=== PATIENT | male | born 1980 | race Caucasian/White ===

== ENCOUNTER 2018-01-30 23:03 | Observation (INO) | payer SELFPAY ==
[~2018-01-30] VITALS: Ht 175.3 cm; Wt 69.6 kg
--- OUTSIDE RECORDS SUMMARY | 2018-01-30 23:10 | XMS REPORT ---
Author Author Alayna Roberts Organization [facility] Address [address] [place], [place] [id number] Care Team Providers Care Epic Beacon Analyst Name Role Phone Alayna Roberts PCP Allergies and Adverse Reactions Name Reaction Notes No known drug allergy Plan of Treatment Planned Activity Comments Planned Date Planned Time Plan/Goal Culture aerobic + anaerobic 01/30/2018 12:00 AM Medications Active Name Start Date Estimated Completion Date SIG Comments Bactrim DS 800-160 mg oral tablet 01/30/2018 02/09/2018 take 1 tablet by oral route every 12 hours for 10 days Problem List Not available. Vital Signs Date Time BP-Sys(mm[Hg] BP-Jamilah(mm[Hg]) HR(bpm) RR(rpm) Temp WT HT HC BMI BSA BMI Percentile O2 Sat(%) 01/30/2018 3:13:00 PM 108 mmHg 80 mmHg 104 bpm 18 rpm 97.9 F 150 lbs 69 in 22.1509 kg/m 1.82 m 97 % Social History Name Description Comments Tobacco Current every day smoker History of Procedures Date Ordered Description Order Status 01/30/2018 12:00 AM THER/PROPH/DIAG INJ SC/IM Reviewed 01/30/2018 12:00 AM DRAINAGE OF SKIN ABSCESS Reviewed 01/30/2018 12:00 AM Rocephin 1 gram Injection Reviewed 01/30/2018 12:00 AM DRAINAGE OF SKIN ABSCESS Reviewed 01/30/2018 12:00 AM DRAINAGE OF SKIN ABSCESS Reviewed Results Summary Not available. History Of Immunizations Not available. History of Past Illness Name Date of Onset Comments Abscess Jan 30 2018 3:18PM Cellulitis of right forearm Jan 30 2018 3:18PM Abscess / Cellulitis Jan 30 2018 5:01PM Payers Not available. 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
--- OUTSIDE RECORDS SUMMARY | 2018-01-30 23:10 | XMS REPORT ---
Author Author Alayna Roberts [facility] Address [address] [place], [place] [id number] Care Team Providers Care Marketing Assistant Manager Name Role Phone Alayna Roberts PCP Allergies [...] 12:00 AM Rocephin 1 gram Injection Reviewed Results Summary Not available. History Of Immunizations Not available. History of Past Illness Name Date of Onset Comments Abscess Jan 30 2018 3:18PM Cellulitis of right forearm Jan 30 2018 3:18PM Payers Not available. History of Encounters Visit Date Visit Type Provider 01/30/2018 Office visit Alayna Roberts APRN
--- OUTSIDE RECORDS SUMMARY | 2018-01-30 23:10 | XMS REPORT ---
Author Author NICCI OLSEN [facility] Address [address] [place] [address] Care Team Providers Care Critical Care Physician Assistant Name Role Phone NICCI OLSEN Unavailable PROBLEMS Type Condition ICD9-CM Code [id number] Code Onset Dates Condition Status SNOMED Code Problem Seizure disorder G40.909 Active [id number] ALLERGIES Substance Reaction Event Type Date Status Penicillin V Potassium nausea Drug Allergy Jan, Active SOCIAL HISTORY No smoking Hx information available PLAN OF CARE Activity Details Follow Up 6 Months Reason: VITAL SIGNS Height 69 in 2016-02-08 Weight 167 lbs 2016-02-08 Temperature 97.3 degrees Fahrenheit 2016-02-08 Heart Rate 62 bpm 2016-02-08 Respiratory Rate 18 2016-02-08 BMI 24.66 kg/m2 2016-02-08 Blood pressure systolic 122 mmHg 2016-02-08 Blood pressure diastolic 64 mmHg 2016-02-08 MEDICATIONS No Known Medications RESULTS Name Result Date Reference Range TSH 2016-02-08 TSH 1.760 0.450-4.500 CBC 2016-02-08 WBC 9.4 3.4-10.8 RBC 4.44 4.14-5.80 Hemoglobin 14.0 12.6-17.7 Hematocrit 40.8 37.5-51.0 MCV 92 79-97 MCH 31.5 26.6-33.0 MCHC 34.3 31.5-35.7 RDW 13.5 12.3-15.4 Platelets 294 150-379 Neutrophils 48 Lymphs 39 Monocytes 10 Eos 2 Basos 1 Immature Cells Neutrophils (Absolute) 4.5 1.4-7.0 Lymphs (Absolute) 3.7 0.7-3.1 Monocytes(Absolute) 1.0 0.1-0.9 Eos (Absolute) 0.1 0.0-0.4 Baso (Absolute) 0.1 0.0-0.2 Immature Granulocytes 0 Immature Grans (Abs) 0.0 0.0-0.1 [facility] Hematology Comments: LIPID PANEL 2016-02-08 Cholesterol, Total 190 100-199 Triglycerides 54 0-149 HDL Cholesterol 61 >39 VLDL Cholesterol Guzman 11 5-40 LDL Cholesterol Calc 118 0-99 Comment: CMP 2016-02-08 Glucose, Serum 80 65-99 BUN 12 6-20 Creatinine, Serum 0.89 0.76-1.27 eGFR If NonAfricn Am 111 >59 eGFR If Africn Am 128 >59 BUN/Creatinine Ratio 13 8-19 Sodium, Serum 142 134-144 Potassium, Serum 4.5 3.5-5.2 Chloride, Serum 101 96-106 Carbon Dioxide, Total 23 18-29 Calcium, Serum 9.4 8.7-10.2 Protein, Total, Serum 6.9 6.0-8.5 Albumin, Serum 4.7 3.5-5.5 Globulin, Total 2.2 1.5-4.5 A/G Ratio 2.1 1.1-2.5 Bilirubin, Total 0.3 0.0-1.2 Alkaline Phosphatase, S 61 39-117 AST (SGOT) 24 0-40 ALT (SGPT) 25 0-44 PROCEDURES Procedure Date Ordered Related Diagnosis Body Site ASSAY THYROID STIM HORMONE Feb 08, 2016 COMPLETE CBC W/AUTO DIFF WBC Feb 08, 2016 COMPREHEN METABOLIC PANEL Feb 08, 2016 LIPID PANEL Feb 08, 2016 Office Visit, Est Pt., Level 3 Feb 08, 2016 VENIPUNCT, ROUTINE* Feb 08, 2016 IMMUNIZATIONS No Known Immunizations
--- OUTSIDE RECORDS SUMMARY | 2018-01-30 23:11 | XMS REPORT | Continuity of Care Document ---
Author Author [facility] Organization [facility] Address [facility] [address] [place] [address] Phone Unavailable Support Name Relationship Address Phone ROSMERY GUZMAN DO Caregiver [address] [place], [place] [phone] MAE MERA Next Of Kin [address] [place], [place] [id number] Insurance Providers Payer Name Policy Number Subscriber Name Relationship Blue Cross/Blue Shield [id number] Coco Paredes 18 Self / Same As Patient Advance Directives Directive Response Recorded Date/Time Advance Directives No 03/17/15 1:39pm Living Will No 03/17/15 1:39pm Health Care Proxy No 08/29/15 12:09pm Power of [employer] for Health Care No 03/17/15 1:39pm Organ, Tissue, or Eye Donor No 03/17/15 1:38pm Do you have a signed organ donor card? No 03/17/15 1:38pm Chief Complaint and Reason for Visit Chief Complaint HAND/FINGER PROBLEM Reason for Visit [id number] Problems Active Problems Medical Problem Onset Date Status Back pain Unknown Acute Crush injury arm Unknown Acute Nausea Unknown Acute Paresthesias Unknown Acute Medications Current Home Medications Medication Dose Units Route Directions Days/Qty Instructions Start Date Ondansetron* 4 Mg/Tab 4 Mg Oral Every 6 Hours As Needed as needed for Nausea 10 03/17/15 Acetaminophen/Hydrocodone Bitart (Lortab 7.5-325 Tab*) 1 Tab 1 Each Oral Every 6 Hrs As Needed For Pain 15 03/17/15 Social History Social History Problem Response Recorded Date/Time Smoking Status Current every day smoker 05/06/2015 7:40pm Alcohol Use none 08/29/2015 1:28pm Drug Use none 08/29/2015 1:28pm Employment Employed 08/29/2015 1:28pm Query Response Start Date Stop Date Smoking Status Current every day smoker Hospital Discharge Instructions No hospital discharge instructions. Plan of Care Discharge Date 08/29/15 1:42pm Disposition 01 HOME, NURSING HOME,ASSISTED LIVING Condition at Discharge Stable Instructions/Education Provided Crush Injury (ED) Prescriptions See Medication Section Functional Status Query Response Date Recorded Patient Behavior Cooperative August 29, 2015 12:20pm Allergies, Adverse Reactions, Alerts No allergy information available. Immunizations Name Given Type Hx Diphtheria, Pertussis, Tetanus Vaccination Unknown Historical Hx Influenza Vaccination No Historical Hx Pneumococcal Vaccination No Historical Vital Signs Acute Vital Signs Vital Response Date/Time Blood Pressure 135/68 mm Hg 08/29/2015 3:01pm O2 Sat by Pulse Oximetry 97 % (90 - 100) 08/29/2015 12:44pm Oxygen Delivery Method 08/29/2015 12:44pm Height 5 ft 10 in Weight 170 lb Body Mass Index 24.0 kg/m^2 Results No known relevant diagnostic tests, laboratory data and/or discharge summary. Procedures Procedure Status Date Provider(s) Wrist Lt. 4 Views(3OR More) Active 08/29/15 ROSMERY GUZMAN DO Hand Lt.4 Views(3OR More) Active 08/29/15 ROSMERY GUZMAN DO X-ray of left forearm Active 08/29/15 ROSMERY GUZMAN DO Encounters Encounter Location Arrival/Admit Date Discharge/Depart Date Attending Provider Departed Emergency Room [facility] 08/29/15 12:10pm 08/29/15 1:42pm ROSMERY GUZMAN DO Recent Diagnosis
[2018-01-31] MEDS ORDERED: fentaNYL INJECTION 100 MCG/2 ML AMP ONE (00:07)
[2018-01-31] MEDS ORDERED: VANCOMYCIN INJECTION 1,000 MG in NS (IVPB) 250 ML IV ONE (00:15)
[2018-01-31] MEDS ORDERED: PIPERACILLIN SODIUM/TAZOBACTAM 4.5 GM in NS (IVPB) 100 ML IV ONE (00:15)
[2018-01-31] MEDS ORDERED: NS IV 1000 ML 1,500 ML IV ONE (00:15)
--- NOTE | 2018-01-31 00:15 | ED Integumentary General ---
General Stated Complaint: MRSA RT ARM,LEFT ARM PIT & CHIN Source: patient, other Exam Limitations: no limitations History of Present Illness Date Seen by Provider: Jan 31, 2018 Time Seen by Provider: 00:08 Initial Comments Patient presents to ER by private conveyance with significant other chief complaint of pain in his left armpit from a nodule. He went to another ER earlier today and they lanced it did not get any purulence out of it said that was on and put him on Bactrim. He's taken one dose. He says he also has a wound on his right forearm. These started out after they bought a house at [facility] from a gentleman who apparently got very sick and apparently contracted gangrene before losing his foot and then put the house up for auction. Patient states he does not abuse any fevers but he's had some chills no nausea vomiting. No history of medical problems. Doesn't take any medicines. His girlfriend also had a hangnail that ended up getting very infected and she went to her doctor's office and was treated for and then a culture grew out MRSA. Patient states he smokes about half a pack to one pack per day. 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 Does not drink alcohol. Allergies and Home Medications Allergies Coded Allergies: Penicillins (Verified Adverse Reaction, Unknown, N/V, 01/31/18) Patient Home Medication List Home Medication List Reviewed: Yes Review of Systems Review of Systems Constitutional: chills; No fever; malaise; No weakness EENTM: other (he thinks he is a new infection starting up on his chin); No ear discharge, No ear pain Respiratory: No cough, No short of breath Cardiovascular: No chest pain, No palpitations Gastrointestinal: No abdominal pain, No constipation, No diarrhea, No nausea Genitourinary: No discharge, No dysuria Musculoskeletal: No back pain, No joint pain Skin: see HPI Past Yzpxpjn-Zgqksh-Khxfox Hx Patient Social History Alcohol Use: Denies Use Recreational Drug Use: No Drug of Choice: 10 years ago last IV meth use Smoking Status: Current Everyday Smoker Type Used: Cigarettes Recent Foreign Travel: No Contact w/Someone Who Travel: No Physical Exam Vital Signs Capillary Refill : General Appearance: moderate distress (tearful), other (disheveled) HEENT: PERRL/EOMI, normal ENT inspection, TMs normal, pharynx normal, other ( chin has a small red 1 mm papule that is nonindurated or tender to palpation.) Neck: non-tender, full range of motion, supple, normal inspection Cardiovascular: normal peripheral pulses, regular rate, rhythm, tachycardia Respiratory: lungs clear, normal breath sounds, no respiratory distress, no accessory muscle use Gastrointestinal: normal bowel sounds, non tender, soft Extremities: other (left axilla has a 4 cm mass consistent with possible abscess versus enlarged lymph node with a crosshatch incision and some thick yellow white purulence less than 1 cc at the opening. Nothing expressed) Neurologic/Psychiatric: alert, oriented x 3, other (anxious and tearful) Skin: other (right forearm has a 1-1/2 cm round eschar with no erythema, induration or area of fluctuance under it.) Procedures/Interventions Progress Clean the left axilla injection site with alcohol thoroughly then Betadine. Allowed it to sit for 2 minutes and then using a 25-gauge 1-1/2 inch needle we used 1% lidocaine without epinephrine and put a total of 3 cc around the abscess to give him some pain relief. Withdrew and got no blood returned before injecting. Progress/Results/Core Measures Results/Orders Lab Results Laboratory Tests Test 01/31/18 00:00 Range/Units White Blood Count 11.9 H 4.3-11.0 10^3/uL Red Blood Count 4.19 L 4.35-5.85 10^6/uL Hemoglobin 13.4 13.3-17.7 G/DL Hematocrit 39 L 40-54 % Mean Corpuscular Volume 94 80-99 FL Mean Corpuscular Hemoglobin 32 25-34 PG Mean Corpuscular Hemoglobin Concent 34 32-36 G/DL Red Cell Distribution Width 12.9 10.0-14.5 % Platelet Count 336 130-400 10^3/uL Mean Platelet Volume 9.8 7.4-10.4 FL Neutrophils (%) (Auto) 63 42-75 % Lymphocytes (%) (Auto) 22 12-44 % Monocytes (%) (Auto) 12 0-12 % Eosinophils (%) (Auto) 2 0-10 % Basophils (%) (Auto) 0 0-10 % Neutrophils # (Auto) 7.5 1.8-7.8 X 10^3 Lymphocytes # (Auto) 2.7 1.0-4.0 X 10^3 Monocytes # (Auto) 1.5 H 0.0-1.0 X 10^3 Eosinophils # (Auto) 0.2 0.0-0.3 10^3/uL Basophils # (Auto) 0.1 0.0-0.1 10^3/uL Prothrombin Time 12.6 12.2-14.7 SEC INR Comment 0.9 0.8-1.4 Activated Partial Thromboplast Time 32 24-35 SEC Sodium Level 141 135-145 MMOL/L Potassium Level 3.8 3.6-5.0 MMOL/L Chloride Level 105 98-107 MMOL/L Carbon Dioxide Level 24 21-32 MMOL/L Anion Gap 12 5-14 MMOL/L Blood Urea Nitrogen 18 7-18 MG/DL Creatinine 0.83 0.60-1.30 MG/DL Estimat Glomerular Filtration Rate > 60 BUN/Creatinine Ratio 22 Glucose Level 119 H 70-105 MG/DL Lactic Acid Level 1.51 0.50-2.00 MMOL/L Calcium Level 9.4 8.5-10.1 MG/DL Corrected Calcium 9.5 8.5-10.1 MG/DL Total Bilirubin 0.2 0.1-1.0 MG/DL Aspartate Amino Transf (AST/SGOT) 36 H 5-34 U/L Alanine Aminotransferase (ALT/SGPT) 21 0-55 U/L Alkaline Phosphatase 107 40-136 U/L Total Protein 6.5 6.4-8.2 GM/DL Albumin 3.9 3.2-4.5 GM/DL My Orders Orders - XOCHITL,TRIXIE J Fentanyl Injection (Sublimaze Injection (01/31/18 00:07) Cbc With Automated Diff (01/31/18 00:15) Comprehensive Metabolic Panel (01/31/18 00:15) Blood Culture (01/31/18 00:15) Sputum Culture (01/31/18 00:15) Urinalysis (01/31/18 00:15) Urine Culture (01/31/18 00:15) Protime With Inr (01/31/18 00:15) Partial Thromboplastin Time (01/31/18 00:15) Chest 1 View, Ap/Pa Only (01/31/18 00:15) Saline Lock/Iv-Start (01/31/18 00:15) Saline Lock/Iv-Start (01/31/18 00:15) Vital Signs Adult Sepsis Patie Q15M (01/31/18 00:15) O2 (01/31/18 00:15) Remove Rings In Anticipation O (01/31/18 00:15) Lactic Acid Analyzer (01/31/18 00:15) Ns Iv 1000 Ml (Sodium Chloride 0.9%) (01/31/18 00:15) Piperacillin Sodium/Tazobactam (Zosyn Vi (01/31/18 00:15) Vancomycin Injection (Vancomycin Injecti (01/31/18 00:15) Fentanyl Injection (Sublimaze Injection (01/31/18 00:30) Isolation Central Supply Req (01/31/18 00:34) Cefepime Injection (Maxipime Injection) (01/31/18 00:45) Lorazepam Injection (Ativan Injection) (01/31/18 01:30) Medications Given in ED Current Medications Medications Dose Ordered Sig/Medhat Route Start Time Stop Time Status Last Admin Dose Admin Cefepime HCl 2000 mg/Sodium Chloride 50 ml @ 100 mls/hr ONCE ONCE IV 01/31/18 00:45 01/31/18 01:14 DC 01/31/18 00:54 100 MLS/HR Lorazepam 1 mg ONCE ONCE IVP 01/31/18 01:30 01/31/18 01:31 DC 01/31/18 02:00 1 MG Sodium Chloride 1,500 ml @ 1,500 mls/hr ONCE ONCE IV 01/31/18 00:15 01/31/18 01:14 DC 01/31/18 00:54 1,500 MLS/HR Vancomycin HCl 1000 mg/Sodium Chloride 250 ml @ 250 mls/hr ONCE ONCE IV 01/31/18 00:15 01/31/18 01:14 DC 01/31/18 02:00 250 MLS/HR Progress Progress Note : Time: 02:19 Progress Note Septic workup for tachycardia. Diagnostic Imaging Diagonstic Imaging: Xray Plain Films/CT/US/NM/MRI: chest Comments No acute cardiopulmonary process noted. Reviewed: Reviewed by Me Departure Communication (Admissions) Time/Spoke to Admitting Phy: 02:00 Discussed case lab imaging with Dr. Jiang and she agrees to observe the patient overnight, continue antibiotics and consult surgery. Time/Spoke to Consulting Phy: 02:00 Discussed case lab imaging with Dr. Rios and he agrees see the patient in the morning. Impression Primary Impression: Abscess Additional Impression: Cellulitis Qualified Codes: L03.114 - Cellulitis of left upper limb Disposition: ADMITTED INPATIENT Condition: Stable Admissions Decision to Admit Reason: Admit from ER (General) Decision to Admit/Date: Jan 31, 2018 Time/Decision to Admit Time: 02:15 Departure-Patient Inst. Referrals: NO,LOCAL PHYSICIAN (PCP/Family) Primary Care Physician TRIXIE LEUNG Jan 31, 2018 00:15
[2018-01-31] MEDS ORDERED: fentaNYL INJECTION 100 MCG/2 ML AMP IVP ONE (00:30)
[2018-01-31 00:32] LABS: BASOPHILS # (AUTO) 0.1 10^3/uL (0.0-0.1); BASOPHILS % (AUTO) 0 % (0-10); EOSINOPHILS # (AUTO) 0.2 10^3/uL (0.0-0.3); EOSINOPHILS % (AUTO) 2 % (0-10); HEMATOCRIT 39 % (40-54); HEMOGLOBIN 13.4 G/DL (13.3-17.7); LYMPHOCYTES # (AUTO) 2.7 X 10^3 (1.0-4.0); LYMPHOCYTES % (AUTO) 22 % (12-44); MEAN CORPUSCULAR HEMOGLOBIN 32 PG (25-34); MEAN CORPUSCULAR HGB CONC 34 G/DL (32-36); MEAN CORPUSCULAR VOLUME 94 FL (80-99); MEAN PLATELET VOLUME 9.8 FL (7.4-10.4); MONOCYTES # (AUTO) 1.5 X 10^3 (0.0-1.0); MONOCYTES % (AUTO) 12 % (0-12); NEUTROPHILS # (AUTO) 7.5 X 10^3 (1.8-7.8); NEUTROPHILS % (AUTO) 63 % (42-75); PLATELET COUNT 336 10^3/uL (130-400); RED BLOOD COUNT 4.19 10^6/uL (4.35-5.85); RED CELL DISTRIBUTION WIDTH 12.9 % (10.0-14.5); WHITE BLOOD COUNT 11.9 10^3/uL (4.3-11.0)
[2018-01-31 00:37] LABS: INR 0.9 (0.8-1.4); PROTHROMBIN TIME PATIENT 12.6 SEC (12.2-14.7)
[2018-01-31 00:40] LABS: ALANINE AMINOTRANSFERASE 21 U/L (0-55); ALBUMIN 3.9 GM/DL (3.2-4.5); ALKALINE PHOSPHATASE 107 U/L (40-136); BILIRUBIN,TOTAL 0.2 MG/DL (0.1-1.0); BUN/CREATININE RATIO 22; CALCIUM 9.4 MG/DL (8.5-10.1); CARBON DIOXIDE 24 MMOL/L (21-32); CHLORIDE 105 MMOL/L (98-107); CREATININE SERUM 0.83 MG/DL (0.60-1.30); GFR ESTIMATED > 60; GLUCOSE 119 MG/DL (70-105); POTASSIUM 3.8 MMOL/L (3.6-5.0); SODIUM 141 MMOL/L (135-145); TOTAL PROTEIN 6.5 GM/DL (6.4-8.2)
[2018-01-31] MEDS ORDERED: CEFEPIME INJECTION 2,000 MG in NS (IVPB) 50 ML IV ONE (00:45)
[2018-01-31] MEDS ORDERED: LORazepam INJ 2 MG/ML (ATIVAN) VIAL IVP ONE (01:30)
[2018-01-31 04:00] VITALS: BP 125/75
[2018-01-31] MEDS ORDERED: NS IV 1000 ML 1,000 ML ONE (04:05)
[2018-01-31] MEDS: NS IV 1000 ML 1,000 ML IV SCH ×2 (04:15→09:50)
[2018-01-31] MEDS ORDERED: ONDANSETRON 4 MG/2 ML (SDV) Z0FRAN IV PRN (05:15)
[2018-01-31] MEDS ORDERED: KETOROLAC 15 MG/ML VIAL IVP PRN (05:15)
[2018-01-31] MEDS ORDERED: PROMETHAZINE INJ 25 MG/ML (PHENERGAN) AMP IV PRN (05:15)
[2018-01-31] MEDS ORDERED: HYDROcodone/APAP 5 MG/325 MG (LORTAB) TAB PO PRN (05:15)
[2018-01-31] MEDS ORDERED: fentaNYL INJECTION 100 MCG/2 ML AMP IV PRN ×2 (05:15)
[2018-01-31 05:45] LABS: BASOPHILS % (AUTO) 0 % (0-10); EOSINOPHILS # (AUTO) 0.2 10^3/uL (0.0-0.3); EOSINOPHILS % (AUTO) 3 % (0-10); HEMATOCRIT 39 % (40-54); LYMPHOCYTES # (AUTO) 2.4 X 10^3 (1.0-4.0); LYMPHOCYTES % (AUTO) 25 % (12-44); MEAN CORPUSCULAR HEMOGLOBIN 32 PG (25-34); MEAN CORPUSCULAR HGB CONC 34 G/DL (32-36); MEAN CORPUSCULAR VOLUME 95 FL (80-99); MEAN PLATELET VOLUME 9.6 FL (7.4-10.4); MONOCYTES # (AUTO) 1.3 X 10^3 (0.0-1.0); MONOCYTES % (AUTO) 13 % (0-12); NEUTROPHILS # (AUTO) 5.6 X 10^3 (1.8-7.8); NEUTROPHILS % (AUTO) 59 % (42-75); PLATELET COUNT 311 10^3/uL (130-400); RED BLOOD COUNT 4.08 10^6/uL (4.35-5.85); RED CELL DISTRIBUTION WIDTH 12.9 % (10.0-14.5); WHITE BLOOD COUNT 9.5 10^3/uL (4.3-11.0)
[2018-01-31 06:00] LABS: BUN/CREATININE RATIO 18; CALCIUM 8.4 MG/DL (8.5-10.1); CARBON DIOXIDE 22 MMOL/L (21-32); CHLORIDE 109 MMOL/L (98-107); CREATININE SERUM 0.71 MG/DL (0.60-1.30); GFR ESTIMATED > 60; GLUCOSE 94 MG/DL (70-105); SODIUM 139 MMOL/L (135-145)
--- NOTE | 2018-01-31 07:13 | Diagnostic Imaging Report ---
Portable erect AP chest at 115 hours. INDICATION: Sepsis. There are no prior studies available for comparison. FINDINGS: The heart size is within normal limits. The lungs are clear. There is no evidence for failure, pneumonia or for pleural effusion. There do appear to be a few small granulomas in both lungs. The mediastinum is not widened. The osseous structures are intact. IMPRESSION: There is no evidence for an acute cardiopulmonary abnormality. Dictated by: Dictated on workstation # [id number]
[2018-01-31 08:00] VITALS: BP 131/77
--- NOTE | 2018-01-31 08:29 | History & Physical-Hospitalist ---
History of Present Illness HPI/Chief Complaint CC: Cellulitis with left axilla swelling and pain HPI: This is a 37-year-old white male but previously had seen in ER physician at outside hospital diagnosis cellulitis of the right hand and left axilla was placed on Bactrim but he felt like he needed a second opinion after taking one pill and the issue not resolving so he is placed on IV fluids IV antibiotics and general surgery consultation ensued. At this current time patient denies any severe change in his status and it is recommended that he is discharged on Bactrim with establishment of medical care near his hometown of [place]. Source: patient Exam Limitations: no limitations Date Seen 01/31/18 Time Seen by a Provider: 10:30 Attending Physician Patricia Jiang DO PCP No,Local Physician Referring Physician Date of Admission Jan 31, 2018 at 02:15 Home Medications & Allergies Home Medications Reviewed patient Home Medication Reconciliation performed by pharmacy medication reconciliations patient care technician and/or nursing. Patients Allergies have been reviewed. Allergies Allergies Coded Allergies Penicillins (Verified Adverse Reaction, Unknown, N/V, 01/31/18) Past Veblcgd-Obwvqs-Viveyb Hx Past Med/Social Hx: Reviewed Nursing Past Med/Soc Hx, Reviewed and Corrections made Patient Social History Marrital Status: Employed/Student: retired Alcohol Use: Denies Use Recreational Drug Use: No Drug of Choice: 10 years ago last IV meth use Smoking Status: Current Everyday Smoker Type Used: Cigarettes 2nd Hand Smoke Exposure: Yes Physical Abuse Screen: No Sexual Abuse: No Recent Foreign Travel: No Contact w/other who traveled: No Recent Hopitalizations: No Recent Infectious Disease Expo: No Immunizations Up To Date Date of Influenza Vaccine: Jan 24, 2018 Seasonal Allergies Seasonal Allergies: No Past Medical History Surgeries: Tonsillectomy Skin/Integumentary: Recent Skin Changes History of Blood Disorders: No Review of Systems Constitutional: see HPI, fever EENTM: no symptoms reported Respiratory: no symptoms reported Cardiovascular: no symptoms reported Gastrointestinal: no symptoms reported Genitourinary: no symptoms reported Musculoskeletal: no symptoms reported Skin: see HPI Psychiatric/Neurological: No Symptoms Reported All Other Systems Reviewed Negative Unless Noted: Yes Physical Exam Physical Exam Vital Signs Vital Signs - First Documented 01/30/18 23:40 Temp 96.5 Pulse 111 Resp 22 B/P (MAP) 140/86 (104) Pulse Ox 97 O2 Delivery Room Air Capillary Refill : Less Than 3 Seconds Height, Weight, BMI Height: 5'9.00" Weight: 153lbs. 7.0oz. 69.677261mk; 22.7 BMI Method:Stated General Appearance: No Apparent Distress, WD/WN, Chronically ill Eyes: Bilateral Eye Normal Inspection, Bilateral Eye PERRL HEENT: PERRL/EOMI, Normal ENT Inspection, Pharynx Normal Neck: Full Range of Motion, Normal Inspection, Non Tender, Supple, Carotid Bruit Respiratory: Chest Non Tender, Lungs Clear, Normal Breath Sounds, No Accessory Muscle Use, No Respiratory Distress Cardiovascular: Regular Rate, Rhythm, No Edema, No Gallop, No JVD, No Murmur, Normal Peripheral Pulses Gastrointestinal: Normal Bowel Sounds, No Organomegaly, No Pulsatile Mass, Non Tender, Soft Back: Normal Inspection, No CVA Tenderness, No Vertebral Tenderness Extremity: Normal Capillary Refill, Normal Inspection, Normal Range of Motion, Non Tender, No Calf Tenderness, No Pedal Edema Neurologic/Psychiatric: Alert, Oriented x3, No Motor/Sensory Deficits, Normal Mood/Affect Skin: Normal Color, Warm/Dry, Rash (resolving cellulitis left axilla and right hand) Lymphatic: No Adenopathy Results Results/Procedures Labs Laboratory Tests 01/31/18 00:00 01/31/18 05:20 Patient resulted labs reviewed. Assessment/Plan Admission Diagnosis Cellulitis Plan is to discharge home Admission Status: Observation Clinical Quality Measures DVT/VTE Risk/Contraindication: Risk Factor Score Per Nursin RFS Level Per Nursing on Admit: 1=Low/No VTE PPX PATRICIA JIANG DO Jan 31, 2018 08:29
--- NOTE | 2018-01-31 09:22 | Consultation ---
History of Present Illness History of Present Illness Patient Consulted On(carol/time) 01/31/18 08:58 Time Seen by Provider: 08:46 History of Present Illness Surgery is asked to consult regarding abscesses. HPI per ED: Patient presents to ER by private conveyance with significant other chief complaint of pain in his left armpit from a nodule. He went to another ER earlier today and they lanced it did not get any purulence out of it said that was on and put him on Bactrim. He's taken one dose. He says he also has a wound on his right forearm. These started out after they bought a house [place] [employer] from a gentleman who apparently got very sick and apparently contracted gangrene before losing his foot and then put the house up for auction. Patient states he does not abuse any fevers but he's had some chills no nausea vomiting. No history of medical problems. Doesn't take any medicines. His girlfriend also had a hangnail that ended up getting very infected and she went to her doctor's office and was treated for and then a culture grew out MRSA. Patient states he smokes about half a pack to one pack per day. 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 Does not drink alcohol. When I spoke to pt he stated pain was severe and cried when I took tape down to look in left axilla. He does not know if he had fevers at home, but does state that he has had decreased appetite. He has the spot in left axilla and on right forearm, denies any other spots. He states he did not have any trauma to the area, doesn't remember getting bit by insect. Allergies and Home Medications Allergies Coded Allergies: Penicillins (Verified Adverse Reaction, Unknown, N/V, 01/31/18) Patient Home Medication List Home Medication List Reviewed: Yes Past Pgnuthc-[id number]-Dfzbvn Hx Patient Social History Alcohol Use: Denies Use Recreational Drug Use: No Drug of Choice: 10 years ago last IV meth use Smoking Status: Current Everyday Smoker Type Used: Cigarettes 2nd Hand Smoke Exposure: Yes Recent Foreign Travel: No Contact w/Someone Who Travel: No Recent Infectious Disease Expo: No Recent Hopitalizations: No Physical Abuse Screen: No Sexual Abuse: No Immunizations Up To Date Date of Influenza Vaccine: Jan 24, 2018 Seasonal Allergies Seasonal Allergies: No Surgeries History of Surgeries: Yes Surgeries: Tonsillectomy Respiratory History of Respiratory Disorde: No Cardiovascular History of Cardiac Disorders: No Neurological History of Neurological Disord: No Genitourinary History of Genitourinary Disor: No Gastrointestinal History of Gastrointestinal Di: No Musculoskeletal History of Musculoskeletal Dis: No Endocrine History of Endocrine Disorders: No HEENT History of HEENT Disorders: No Cancer History of Cancer: No Psychosocial History of Psychiatric Problem: No Integumentary History of Skin or Integumenta: Yes Skin/Integumentary Disorders: Recent Skin Changes Blood Transfusions History of Blood Disorders: No Family Medical History Significant Family History: Cancer (sister has leukemia) Review of Systems-General Constitutional: chills, malaise, weakness EENTM: No blurred vision, No double vision, No eye pain, No throat swelling Respiratory: No cough, No dyspnea on exertion, No hemoptysis Cardiovascular: No chest pain, No edema, No palpitations Gastrointestinal: No abdominal pain, No constipation, No diarrhea, No hematemesis Genitourinary: No dysuria, No frequency, No hematuria Musculoskeletal: muscle pain, muscle stiffness, muscle cramps Skin: see HPI Psychiatric/Neurological: Denies Anxiety, Denies Depressed, Denies Seizure, Denies Weakness Other pt denies any abnormal bruising or bleeding Physical Exam-General Problems Physical Exam Vital Signs Vital Signs - First Documented 01/30/18 23:40 Temp 96.5 Pulse 111 Resp 22 B/P (MAP) 140/86 (104) Pulse Ox 97 O2 Delivery Room Air Capillary Refill : Less Than 3 Seconds General Appearance: WD/WN, mild distress Eyes: Bilateral Eye PERRL, Bilateral Eye EOMI HEENT: pharynx normal; No scleral icterus (R), No scleral icterus (L) Neck: non-tender, full range of motion, supple, normal inspection Respiratory: chest non-tender, lungs clear, normal breath sounds, no respiratory distress, no accessory muscle use Cardiovascular: regular rate, rhythm, no edema, no murmur Gastrointestinal: normal bowel sounds, non tender, soft, no organomegaly, no pulsatile mass Back: no CVA tenderness, no vertebral tenderness Extremities: no pedal edema, no calf tenderness, normal capillary refill, other (Right forearm erythematous raised lesion, with scab and some mild purulence just under skin does not look deep. 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, no motor/sensory deficits, oriented x 3, other (labile) Skin: normal color, warm/dry, other (see extremity PE) Lymphatic: no adenopathy (supraclavicular, cervical or inguinal) Data Review Labs Laboratory Tests 01/31/18 00:00: White Blood Count 11.9H, Red Blood Count 4.19L, Hemoglobin 13.4, Hematocrit 39L , Mean Corpuscular Volume 94, Mean Corpuscular Hemoglobin 32, Mean Corpuscular Hemoglobin Concent 34, Red Cell Distribution Width 12.9, Platelet Count 336, Mean Platelet Volume 9.8, Neutrophils (%) (Auto) 63, Lymphocytes (%) (Auto) 22, Monocytes (%) (Auto) 12, Eosinophils (%) (Auto) 2, Basophils (%) (Auto) 0, Neutrophils # (Auto) 7.5, Lymphocytes # (Auto) 2.7, Monocytes # (Auto) 1.5H, Eosinophils # (Auto) 0.2, Basophils # (Auto) 0.1, Prothrombin Time 12.6, INR Comment 0.9, Activated Partial Thromboplast Time 32, Sodium Level 141, Potassium Level 3.8, Chloride Level 105, Carbon Dioxide Level 24, Anion Gap 12, Blood Urea Nitrogen 18, Creatinine 0.83, Estimat Glomerular Filtration Rate > 60 , BUN/Creatinine Ratio 22, Glucose Level 119H, Lactic Acid Level 1.51, Calcium Level 9.4, Corrected Calcium 9.5, Total Bilirubin 0.2, Aspartate Amino Transf ( AST/SGOT) 36H, Alanine Aminotransferase (ALT/SGPT) 21, Alkaline Phosphatase 107 , Total Protein 6.5, Albumin 3.9 01/31/18 05:20: White Blood Count 9.5, Red Blood Count 4.08L, Hemoglobin 13.0L, Hematocrit 39L, Mean Corpuscular Volume 95, Mean Corpuscular Hemoglobin 32, Mean Corpuscular Hemoglobin Concent 34, Red Cell Distribution Width 12.9, Platelet Count 311, Mean Platelet Volume 9.6, Neutrophils (%) (Auto) 59, Lymphocytes (%) (Auto) 25, Monocytes (%) (Auto) 13H, Eosinophils (%) (Auto) 3, Basophils (%) (Auto) 0, Neutrophils # (Auto) 5.6, Lymphocytes # (Auto) 2.4, Monocytes # (Auto) 1.3H, Eosinophils # (Auto) 0.2, Basophils # (Auto) 0.0, Sodium Level 139, Potassium Level 4.0, Chloride Level 109H, Carbon Dioxide Level 22, Anion Gap 8, Blood Urea Nitrogen 13, Creatinine 0.71, Estimat Glomerular Filtration Rate > 60, BUN/ Creatinine Ratio 18, Glucose Level 94, Calcium Level 8.4L Assessment/Plan Assessment/Plan Assessment/Plan Left Axillary Mass - probable lymph node Right Forearm abscess Both of these are probably MRSA related; attempt to I&D the left axilla at outside hospital was unsuccessful. Would recommend warm compresses and continue Bactrim, may need to add Clindamycin. Hopefully the warm compresses will unroof the scab on right and allow to drain. No surgical intervention at this time. Can add Bactroban ointment to be place on both areas, would be happy to see in my office as an outpt. Clinical Quality Measures DVT/VTE Risk/Contraindication: Risk Factor Score Per Nursin RFS Level Per Nursing on Admit: 1=Low/No VTE PPX LOIDA YOUNG DO Jan 31, 2018 09:22
[2018-01-31 10:27] LABS: BILIRUBIN,URINE NEGATIVE (NEGATIVE); CLARITY,URINE CLEAR; COLOR,URINE YELLOW; GLUCOSE, URINE (UA) NEGATIVE (NEGATIVE); KETONES,URINE NEGATIVE (NEGATIVE); LEUKOCYTE ESTERASE ,URINE NEGATIVE (NEGATIVE); NITRITE,URINE NEGATIVE (NEGATIVE); PH,URINE 7 (5-9); PROTEIN,URINE NEGATIVE (NEGATIVE); UROBILINOGEN,URINE NORMAL (NORMAL)
[2018-01-31 10:35] LABS: BACTERIA,URINE NEGATIVE /HPF; SQUAMOUS EPITHELIAL CELL,UR RARE /HPF
[2018-01-31 10:50] LABS: AMPHETAMINE SCREEN, URINE POSITIVE (NEGATIVE); BARBITURATE SCREEN URINE NEGATIVE (NEGATIVE); BENZODIAZEPINES SCREEN URINE POSITIVE (NEGATIVE); CANNABINOID SCREEN, URINE NEGATIVE (NEGATIVE); COCAINE SCREEN URINE NEGATIVE (NEGATIVE); METHADONE STAT NEGATIVE (NEGATIVE); METHAMPHETAMINE SCREEN URINE S POSITIVE (NEGATIVE); OPIATE SCREEN URINE NEGATIVE (NEGATIVE); OXYCODONE STAT NEGATIVE (NEGATIVE); PROPOXYPHENE STAT NEGATIVE (NEGATIVE); TRICYCLIC ANTIDEPRESSANTS SCRE NEGATIVE (NEGATIVE)
[2018-01-31] MEDS ORDERED: ACHD5005 PO (11:13)
[2018-01-31] MEDS ORDERED: SULF1TAB35 PO (11:13)
[2018-01-31 11:52] VITALS: BP 131/77
== END 2018-01-31 11:13 | disposition home or self-care (01) ==
LOC: ER 23:06 → 4TH 23:07 → UNDOADMOB 01-31 02:15 → UNDODISOB 01-31 11:54
PROVIDERS: ADMIT Internal Medicine; ATTEND Internal Medicine
DX: L03.114 Cellulitis of left upper limb (principal); F17.210 Nicotine dependence, cigarettes, uncomplicated; R22.2 Localized swelling, mass and lump, trunk
CPT/HCPCS: 36415; 71045; 80048; 80053; 80306; 81000; 83605; 85025; 85610; 85730; 87040; 87088; 96361; 96365; 96367; 96375; G0378